=== PATIENT | male | born 1985 | race Caucasian/White ===

== ENCOUNTER → 2020-12-21 13:11 | Outpatient (CLI) | payer OTHER, SELFPAY | PROVIDERS: Visit Provider Nurse Practitioner | DX: U07.1 COVID-19 (principal) | CPT/HCPCS: C9803; U0003; U0005 ==

== ENCOUNTER 2021-01-29 20:51 | Emergency (ER) | payer OTHER, SELFPAY ==
[2021-01-29 20:52] VITALS: BP 135/116; PULSE 89; RESP 12; TEMP 36.9; O2SAT 98; BMI 21.9
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
[2021-01-29 21:55] LABS: Ethyl Alcohol < 10 mg/dl (0-10)
[2021-01-29 22:09] VITALS: BP 127/73; PULSE 89; RESP 12; TEMP 36.9; O2SAT 98
--- NOTE | 2021-01-30 02:42 | PC.NURSE ---
spoke with captain lacy at [facility] [place] who wanted confirm of medical clearance for [facility]
== END 2021-01-29 22:12 ==
PROVIDERS: Emergency Provider Student in an Organized Health Care Education/Training Program; PCP Emergency Medicine
DX: F10.10 Alcohol abuse, uncomplicated (principal)
CPT/HCPCS: 99283

== ENCOUNTER 2021-02-05 16:49 | Emergency (ER) | payer OTHER, SELFPAY ==
[2021-02-05 16:53] VITALS: BP 115/87; PULSE 105; RESP 16; TEMP 37.2; O2SAT 98; BMI 20.3; BMI 21.1
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
[2021-02-05 18:54] VITALS: BP 115/87; PULSE 116; RESP 18; TEMP 36.8; O2SAT 99
== END 2021-02-05 18:56 | disposition home or self-care (01) ==
PROVIDERS: Emergency Provider Student in an Organized Health Care Education/Training Program; PCP Emergency Medicine
DX: M54.50 Low back pain, unspecified (principal); R55 Syncope and collapse; K02.9 Dental caries, unspecified
CPT/HCPCS: 70450; 72125; 72131; 99281

== ENCOUNTER 2022-01-07 21:58 | Emergency (ER) | payer OTHER, SELFPAY ==
[2022-01-07 22:04] VITALS: BP 97/65; PULSE 110; RESP 16; TEMP 36.8; O2SAT 97; BMI 21.9
[2022-01-07 22:14] VITALS: BP 97/65; PULSE 110; RESP 18; TEMP 36.8; O2SAT 97
--- NOTE | 2022-01-07 22:15 | HMH.EDMCLR ---
Discharge Plan Disposition Chief Complaint: Medical Clearance Referrals Follow up/Referrals: Magan Golden MD [Primary Care Provider] - See instructions Clinical Impressions Clinical Impression: Medical clearance for incarceration Discharge ED Provider: Magan Golden Medical Clearance HPI General Chief complaint: Medical Clearance Stated complaint: medical clearance Time Seen by Provider: 01/07/22 22:15 Mode of Arrival: Ambulatory Source of Information: Patient and Law Enforcement Limitations: No Limitations Description of Symptoms (Recalled from ER Triage Doc. by RN): Pt for medical clearance d/t intoxication. pt is stable during triage and has no complaints. Pt admits use of marijuana. History of Present Illness HPI Narrative: no specific c/o MD complaint: medical clearance requested Onset (ago): hour(s) Reason for Medical Clearance: intoxication Alleged Intoxication: Yes Traumatic Symptoms: denies traumatic injury Allergies Allergy/AdvReac Type Severity Reaction Status Date / Time No Known Allergies Allergy Verified 01/29/21 21:38 PFSH PFSH Social History Smoking Status: Current every day smoker alcohol intake: current current occupational status: unemployed Travel in the last 8 weeks: None ROS Obtained: Yes All systems reviewed & no additional complaints except as documented Physical Exam General General appearance: alert Head Head exam: normocephalic Eye Eye exam: Present PERRL and EOMI ENT ENT exam: Present mucous membranes moist Neck Neck exam: Present trachea midline Respiratory Respiratory exam: Present normal lung sounds bilaterally Cardiovascular Cardiovascular exam: Present regular rate Abdominal Exam Abdominal exam: Present soft Extremities Exam Extremities exam: Present full ROM Neurological Exam Neurological exam: Present alert and CN II-XII intact Psychiatric Psychiatric exam: Present normal affect Skin Skin exam: Absent rash Medical Decision Making Medical Records Medical records reviewed: Yes I reviewed the patient's medical records. Randall Inquiry Pt receiving controlled substance: No Vital Signs: 01/07/22 22:04 Temperature 98.2 F Temperature Source Oral Pulse Rate [Right Radial] 110 H Respiratory Rate 16 Blood Pressure [Right Arm] 97/65 L Blood Pressure Mean [Right Arm] 75 Blood Pressure Source [Right Arm] Automatic Cuff Blood Pressure Position [Right Arm] Sitting 02 Sat by Pulse Oximetry 97 Oxygen Delivery Method Room Air Lab Data Lab results reviewed: Yes I reviewed the patient's lab results. Medical Decision Narrative: stable exam Critical Care Time Critical Care Time Critical Care Time: No Attestation: On 01/07/22, the high probability of a clinically significant, sudden or life threatening deterioration of the following system(s) required my full and direct attention, intervention and personal management. The time I documented below is in addition to time spent performing reported procedures but includes the following listed in this critical care notation.
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
[2022-01-07 22:26] VITALS: BP 105/65; PULSE 104; RESP 16; TEMP 36.8; O2SAT 97
== END 2022-01-07 22:29 | disposition home or self-care (01) ==
LOC: ER 22:03
PROVIDERS: Emergency Provider Emergency Medicine; PCP Emergency Medicine
DX: Z02.89 Encounter for other administrative examinations (principal)
CPT/HCPCS: 99282

== ENCOUNTER 2023-11-13 18:32 | Emergency (ER) | payer SELFPAY ==
[2023-11-13 18:42] VITALS: BP 162/89; PULSE 102; RESP 20; TEMP 36.8; O2SAT 99; BMI 21.9
--- NOTE | 2023-11-13 18:47 | ED_ITS ---
<Statement entered by Ani Hansen MD - 11/13/23 22:53> I was consulted by the LANETTE, and we discussed the complexity of the problems being addressed. I approved the treatment and management plan for this patient's care in the emergency department, thus performing a substantive portion of the medical decision making. Ani Hansen MD, GIORGIO, FACEP Discharge Plan Disposition Patient Disposition: Home, Self-Care Condition: Good Referrals Follow up/Referrals: Provider,Referral, MD [Primary Care Provider] - See instructions Activity Restrictions/Add. Instructions Additional Instructions/Restrictions: Follow-up with your PCP for any worsening signs or symptoms or return to ER as needed Clinical Impressions Clinical Impression: Medical clearance for incarceration Print Language Print Language: Italian Discharge ED Provider: Ani Hansen General Adult HPI General Chief complaint: Medical Clearance Stated complaint: medical clearance Time Seen by Provider: 11/13/23 18:47 Mode of Arrival: Ambulatory Source of Information: Patient and Law Enforcement Limitations: Altered Mental Status Description of Symptoms (Recalled from ER Triage Doc. by RN): pt to ed for medical clearance. pt reports to smoking an unknown substance. History of Present Illness HPI narrative: Patient presents in the custody of law enforcement for medical clearance for incarceration. Patient denies any complaints and requests no evaluation. Related Data Allergies Allergy/AdvReac Type Severity Reaction Status Date / Time No Known Allergies Allergy Verified 01/29/21 21:38 [facility] Disclaimer: The information contained in this section may have been updated after the patient was seen, as this information can be updated by other users. Social History (Updated 01/07/22 @ 22:20 by Magan Golden MD) Smoking Status: Current every day smoker alcohol intake: current current occupational status: unemployed Travel in the last 8 weeks: None ROS Obtained: Yes Systems reviewed as appropriate & no additional complaints except as documented Physical Exam General General appearance: alert and in no apparent distress Respiratory Respiratory exam: Present normal lung sounds bilaterally Cardiovascular Cardiovascular exam: Present regular rate and normal rhythm Neurological Exam Neurological exam: Present alert and oriented X3 Medical Decision Making Randall Inquiry Pt receiving controlled substance: No Vital Signs: 11/13/23 18:42 11/13/23 18:54 Temperature 98.2 F 98.2 F Temperature Source Oral Oral Pulse Rate 102 H Pulse Rate [Left Radial] 102 H Respiratory Rate 20 20 Blood Pressure 162/89 H Blood Pressure [Right Arm] 162/89 H Blood Pressure Mean [Right Arm] 113 02 Sat by Pulse Oximetry 99 Oxygen Delivery Method Room Air Room Air Medical Decision Narrative: In summary patient is a 38-year-old male who presents to the emergency department for evaluation of medical clearance for incarceration. Patient is slightly hypertensive at 162/89 but otherwise hemodynamically stable upon arrival, afebrile. Physical exam is unremarkable Martínez Coma Score is 15 patient is awake alert and oriented and has the capacity for decision making. Given this patient requests no evaluation for any problem and is comfortable being discharged in the care of law enforcement. Given this patient is appropriate for discharge and cleared medical for incarceration. Critical Care Critical Care Time Critical Care Time: No
[2023-11-13 18:54] VITALS: BP 162/89; PULSE 102; RESP 20; TEMP 36.8; O2SAT 99
== END 2023-11-13 18:56 | disposition home or self-care (01) ==
PROVIDERS: Emergency Provider Student in an Organized Health Care Education/Training Program
DX: Z00.8 Encounter for other general examination (principal)
CPT/HCPCS: 99281